=== PATIENT | male | born 1970 | race Caucasian/White ===

== ENCOUNTER 2018-01-06 12:10 | Emergency (ER) | payer BC, SELFPAY ==
[2018-01-06 12:10] VITALS: BP 112/89; PULSE 87; RESP 18; TEMP 36.6; O2SAT 98; BMI 27.4
--- NOTE | 2018-01-06 13:22 | ED.VISSUMM ---
- ER Visit Summary Date of Service: 01/06/18 Chief Complaint: [] Left inguinal pain for years History of Present Illness: The patient is a 47 M [] has had left inguinal pain for years he has had an extensive prior evaluation for the etiology of this pain is unclear he does have a history of a right hernia inguinal surgery involving mesh done about 20 years ago at a [facility]. Indicates the etiology of the left inguinal pain is unclear he has been seen by multiple physicians for he is currently under pain management for back pain and this pain as well, he indicates he had a lumbar spine injection by his pain management physician recently that usually controls the pain this time it did not, he went to [facility] 1 day ago had extensive workup by his history his reports, including negative workup labs and a CT scan of that area that showed no hernia no tumor no mass nothing life-threatening he was told to follow-up with his physicians, he was given Vicodin to use as needed for the pain, he is currently prescribed tramadol by his pain management physicians with tramadol is not helping but the Vicodin did, he still has some Vicodin tablets left Resents the emergency department because he wants something done for the pain until he can follow-up with his physicians, his bowel bladder habits been normal he has had again no fever no cough no trauma to the area he indicates to me in a direct fashion that this pain is chronic it is not new or different it just did not respond to the lumbar spine injection he had the other day by his [employer] pain management physician Physical Examination: [] Points directly to the left inguinal area suprapubic region, head neck chest unremarkable the abdomen soft nontender the left inguinal region shows some fatty fullness here no obvious hernia is apparent no tumor no mass he just basically complains of pain to the left of the pubis to this area there is no skin lesions no skin palomino no warmth no fluctuance, is a slight fullness that is mild and may be the abnormality seen on CT the other day his testicles are unremarkable he has strong femoral pulses bilaterally he has no adenopathy his back is unremarkable his upper lower extremity unremarkable Test Results: [] Emergency Department Course and Treatment: [] Long conversation with the patient apparently he has gone through an extensive prior diagnostic evaluation for this process he most recently had a CT scan as above, I do not know why this pain did not respond to the epidural spine injection he had recently but this appears to be chronic, I explained to him that given his prior workup there is does not appear to be anything additional that I can do through the emergency department, he does not wish to have any tests done to the emergency department he just wants his pain control at this time of explained to him we cannot further manage his pain from the emergency department he will be given morphine, Toradol IM and he will follow-up his pain management doctors and other physicians for further management Treatment Plan: [] Disposition: [] Home stable Impression: [] Acute recurrent left inguinal groin pain This note was generated with [employer] dictation software. It may contain incorrect words, spelling, and punctuation that were not noted in review of the chart prior to signing ED Disposition - Plan for ED Patient: Chief Complaint: Other, Pain/Inj Referrals: Josias Mcwilliams DO [Primary Care Provider] -
--- NOTE | 2018-01-06 13:27 | ED.DCSUM_ITS ---
- ER Visit Summary Date of Service: 01/06/18 Chief Complaint: [] Left inguinal pain for years History of Present Illness: The patient is a 47 M [] has had left inguinal pain for years he has had an extensive prior evaluation for the etiology of this pain is unclear he does have a history of a right hernia inguinal surgery involving mesh done about 20 years ago at a [facility]. Indicates the etiology of the left inguinal pain is unclear he has been seen by multiple physicians for he is currently under pain management for back pain and this pain as well, he indicates he had a lumbar spine injection by his pain management physician recently that usually controls the pain this time it did not, he went to [facility] 1 day ago had extensive workup by his history his reports, including negative workup labs and a CT scan of that area that showed no hernia no tumor no mass nothing life-threatening he was told to follow -up with his physicians, he was given Vicodin to use as needed for the pain, he is currently prescribed tramadol by his pain management physicians with tramadol is not helping but the Vicodin did, he still has some Vicodin tablets left Resents the emergency department because he wants something done for the pain until he can follow-up with his physicians, his bowel bladder habits been normal he has had again no fever no cough no trauma to the area he indicates to me in a direct fashion that this pain is chronic it is not new or different it just did not respond to the lumbar spine injection he had the other day by his [employer] pain management physician Physical Examination: [] Points directly to the left inguinal area suprapubic region, head neck chest unremarkable the abdomen soft nontender the left inguinal region shows some fatty fullness here no obvious hernia is apparent no tumor no mass he just basically complains of pain to the left of the pubis to this area there is no skin lesions no skin palomino no warmth no fluctuance, is a slight fullness that is mild and may be the abnormality seen on CT the other day his testicles are unremarkable he has strong femoral pulses bilaterally he has no adenopathy his back is unremarkable his upper lower extremity unremarkable Test Results: [] Emergency Department Course and Treatment: [] Long conversation with the patient apparently he has gone through an extensive prior diagnostic evaluation for this process he most recently had a CT scan as above, I do not know why this pain did not respond to the epidural spine injection he had recently but this appears to be chronic, I explained to him that given his prior workup there is does not appear to be anything additional that I can do through the emergency department, he does not wish to have any tests done to the emergency department he just wants his pain control at this time of explained to him we cannot further manage his pain from the emergency department he will be given morphine, Toradol IM and he will follow-up his pain management doctors and other physicians for further management Treatment Plan: [] Disposition: [] Home stable Impression: [] Acute recurrent left inguinal groin pain This note was generated with [employer] dictation software. It may contain incorrect words, spelling, and punctuation that were not noted in review of the chart prior to signing ED Disposition - Plan for ED Patient: Chief Complaint: Other, Pain/Inj Referrals: Josias Mcwilliams DO [Primary Care Provider] -
--- NOTE | 2018-01-06 13:27 | ED.DEP ---
ED Disposition - Plan for ED Patient: Chief Complaint: Other, Pain/Inj Instructions: ED Chronic Pain Management Referrals: Josias Mcwilliams DO [Primary Care Provider] -
[2018-01-06] MEDS: Ketorolac 60 MG/2 ML Vial IM (13:38)
[2018-01-06 13:46] VITALS: BP 120/72; PULSE 98; RESP 16; O2SAT 94
== END 2018-01-06 13:46 | disposition home or self-care (01) ==
LOC: ED 12:58
PROVIDERS: Emergency Provider Emergency Medicine; Family Provider Family Medicine; PCP Family Medicine
DX: R10.32 Left lower quadrant pain (principal)
CPT/HCPCS: 96372; 99283

== ENCOUNTER 2018-05-02 10:45 | Emergency (ER) | payer BC, SELFPAY ==
[2018-05-02 10:46] VITALS: BP 117/72; PULSE 92; RESP 18; TEMP 36.6; O2SAT 98; BMI 25.8
--- NOTE | 2018-05-02 11:01 | ED.DCSUM_ITS ---
- ER Visit Summary Date of Service: 05/02/18 Chief Complaint: Left thumb injury History of Present Illness: The patient is a 47 M who is right-hand dominant with up-to-date tetanus presents to the emergency department with left thumb injury. Patient was in his normal state of health. He states that he was loading up his truck bed this morning. He thinks that he got his finger stuck with a corrugated staple. He had immediate pain and bleeding. He states that he put glue on the area and then bandaged it. He states later, he accidentally remove the bandage and he was putting on a shoe. It started to bleed again. He states he went to urgent care, but they told him he needs to come here for evaluation. He is otherwise healthy. Physical Examination: Vital signs reviewed General: Well-nourished, well-developed Head: Normocephalic, atraumatic Eyes: Pupils equal and reactive, extraocular muscles intact Neck, supple, no lymphadenopathy Heart: Regular rate and rhythm Respiratory: No distress, clear bilaterally Abdomen: Soft, nontender, nondistended, no peritoneal signs Back: Nontender Extremities: Patient has a 3 cm full-thickness laceration through the lateral aspect of the left first nail. There is active bleeding. Two-point determination is preserved. Flexion and extension are preserved. Skin: Normal color no rash Neuro: Alert and oriented, no focal or lateralizing deficits Test Results: [] Emergency Department Course and Treatment: The patient's tetanus is already up- to-date. I did obtain plain films. There is no evidence of bony involvement. He underwent digital block under sterile technique. The wound was aggressively irrigated with 250 cc of normal saline. I did remove the partial aspect of the lateral nail which had avulsed. The nailbed was closed with 1 5-0 Polysorb suture. The rest of the laceration involving the pad of the finger was closed with 5 5-0 simple interrupted suture. The patient tolerated this without issue. Dressing was placed. He was counseled on wound care. He will follow- up in 10 days for suture removal. He is comfortable with this plan of care. Treatment Plan: [] Disposition: Discharge Impression: 2 cm left first finger laceration with nailbed involvement with repair This note was generated with [employer] software. It may contain incorrect words, spelling, and punctuation that were not noted in review of the chart prior to signing ED Disposition - Plan for ED Patient: Chief Complaint: Laceration Instructions: ED Laceration Hand Referrals: Josias Mcwilliams DO [Primary Care Provider] - 10 Day for suture removal
[2018-05-02] MEDS: Bupivacaine Mpf 0.5% 30 ML VIAL INFILT (12:41)
[2018-05-02 12:42] VITALS: BP 117/74; PULSE 64; RESP 14; O2SAT 98
== END 2018-05-02 12:57 | disposition home or self-care (01) ==
LOC: ED 11:01
PROVIDERS: Emergency Provider Emergency Medicine; Family Provider Family Medicine; PCP Family Medicine
DX: S61.112A Laceration without foreign body of left thumb with damage to nail, initial encounter (principal); W22.8XXA Striking against or struck by other objects, initial encounter; Y93.89 Activity, other specified; Y92.9 Unspecified place or not applicable
CPT/HCPCS: 11730; 12002; 73130; 99283

== ENCOUNTER → 2020-05-13 15:06 | Outpatient (CLI) | payer BC, SELFPAY ==
--- NOTE | 2020-05-13 15:09 | RAD_ITS ---
STUDY: X-RAY - CERVICAL SPINE REASON FOR EXAM: Male, 50 years old. Headache. Limited range of motion. TECHNIQUE: 3 view(s) of the cervical spine were obtained. COMPARISON: None FINDINGS: Normal anterior atlantoaxial articulation. Normal odontoid process. There is reversal of the normal cervical lordosis. There is multi-level endplate spondylosis. There is multi-level degenerative disc disease with multilevel disc space narrowing. This is most marked at L5 6. There is no evidence of acute fracture or loss of vertebral axial height. There is maintenance of normal alignment. The soft tissue structures are unremarkable. RAD/Cerv Spine 2 or 3 Views IMPRESSION: Reversal of the cervical lordosis with degenerative changes of the lower cervical spine. Electronically Signed: Hilario Ang DO at 16:16 EDT Tel [phone], Service support ,
== END ==
PROVIDERS: PCP Family Medicine; Referring Provider Anesthesiology Pain Medicine; Visit Provider Anesthesiology Pain Medicine
DX: M54.2 Cervicalgia (principal)
CPT/HCPCS: 72040

== ENCOUNTER → 2022-10-10 | Outpatient (CLI) | payer OTHER, SELFPAY ==
--- NOTE | 2022-10-10 15:50 | MRI_ITS ---
PROCEDURE: MRI LUMBAR SPINE WITHOUT CONTRAST REASON FOR EXAM: Male, 52 years old. LBP,GROIN PAIN radiculopathy TECHNIQUE: Standardized fat and water weighted pulse sequences were obtained in the sagittal and axial planes. COMPARISON: None FINDINGS: Normal lumbar lordosis. There is no substantial scoliosis. Normal conus medullaris that terminates at the T12 level. No marrow edema or fracture or compression deformity is seen. T12-L1: Moderate disc space narrowing with minimal annular bulging. Normal bilateral facet joints. Normal central canal and bilateral lateral recesses. Normal bilateral intervertebral neural foramina. L1-2: Moderate disc space narrowing with diffuse disc bulge and mild endplate spurring. Mild central canal stenosis and mild facet joint hypertrophy. Normal bilateral intervertebral neural foramina. L2-3: Diffuse disc desiccation with mild to moderate disc space narrowing and a diffuse disc bulge/spur complex. Mild Modic endplate degenerative signal. Normal bilateral facet joints. Normal central canal and bilateral lateral recesses. Normal bilateral intervertebral neural foramina. L3-4: Moderate to significant disc space narrowing with a diffuse disc bulge/spur complex. Mild Modic endplate degenerative signal. Slight retrolisthesis of L3 on L4 of 2 mm. Mild central canal stenosis and bilateral lateral recess stenosis with mild impingement on the descending nerve roots. Moderate facet joint hypertrophy results in moderate bilateral foraminal stenosis with nerve root compression, left greater than right. L4-5: Diffuse disc desiccation with moderate to significant disc space narrowing and mild diffuse disc bulging. Mild to moderate Modic endplate degenerative signal and endplate spurring. Mild facet joint hypertrophy. Mild bilateral foraminal stenosis with posterior nerve root impingement seen on the left. Normal central canal and bilateral lateral recesses. L5-S1: Normal endplates. Mild posterior disc space narrowing without bulging or herniation of the disc. Mild facet joint hypertrophy. Normal central canal and bilateral lateral recesses. Normal bilateral intervertebral neural foramina. Normal visualized sacral ala. Normal visualized paraspinous soft tissue structures. MRI/Spine Lumbar (Routine) IMPRESSION: 1. Multilevel degenerative changes, as described above. 2. Multilevel foraminal stenosis with nerve root compression 3. Mild central canal stenosis at L1-L2 and L3-L4 Electronically Signed: Braxton Cordova MD at 14:14 EST ,
== END | disposition home or self-care (01) ==
PROVIDERS: PCP Family Medicine; Referring Provider Anesthesiology Pain Medicine; Visit Provider Anesthesiology Pain Medicine
DX: M54.17 Radiculopathy, lumbosacral region (principal)
CPT/HCPCS: 72148

== ENCOUNTER 2024-08-18 11:29 | Emergency (ER) | payer OTHER, SELFPAY ==
[2024-08-18 11:30] VITALS: BP 123/80; PULSE 68; RESP 14; TEMP 36.6; O2SAT 98; BMI 24.4
--- NOTE | 2024-08-18 11:50 | CT_ITS ---
EXAM: CT HEAD WITHOUT INTRAVENOUS CONTRAST CLINICAL INDICATION: ALOC TECHNIQUE: Multiple axial images were obtained of the head without intravenous contrast. This CT exam was performed using one or more of the following dose reduction techniques: automated exposure control, adjustment of the mA and/or kV according to patient size, and/or use of iterative reconstruction technique. RADIATION DOSE: CTDIvol = 44.99 mGy, DLP = 812.98 mGy-cm COMPARISON: No relevant prior studies available. FINDINGS: BRAIN AND EXTRA-AXIAL SPACES: Unremarkable. No intra- or extra-axial hemorrhage. No evidence of acute infarct. No intracranial mass or mass effect. There is preservation of the boogie/white matter interface. Posterior fossa structures are unremarkable. Ventricles are appropriate for age. No hydrocephalus. Basal cisterns are patent. BONES/JOINTS: Unremarkable. No discrete lytic or blastic abnormalities. SINUSES: Unremarkable as visualized. Clear. MASTOID AIR CELLS: Unremarkable. Clear. ORBITS: Visualized globes, extraocular muscles, optic nerves and retrobulbar fat appear unremarkable. CT/Brain/Head without Contrast IMPRESSION: Negative head/brain CT without intravenous contrast. Electronically Signed: Spenser Redman MD at 13:14 EST ,
--- NOTE | 2024-08-18 11:51 | EX.ED.DYSGE1 ---
HPI History of Present Illness Chief Complaint: Fatigue Informant: patient Onset/Context/Timing Onset: Today Context: Gradual Onset Timing: Continuous Current Severity: Mild Maximum Severity: Mild Narrative Narrative: 54-year-old male history of anxiety. Says his work today is feeling very fatigued. Reportedly had an altered level of consciousness. I do not headache earlier today. Denies any recent illness. No vomiting or diarrhea. No fever. No chest pain or shortness of breath. Prior similar symptoms: No Recent Illness/Hospitalization: No PFSH PFSH Medical History Back pain Home Medications ?Medication ?Instructions ?Recorded ?Last Taken ?Type armodafinil 150 mg tablet (Nuvigil) 150 mg PO DAILY 01/06/18 Unknown History citalopram 20 mg tablet 20 mg PO DAILY 01/06/18 Unknown History clonazepam 1 mg tablet 1 mg PO BID 01/06/18 Unknown History tramadol 50 mg tablet 50 mg PO Q4H PRN PRN Pain 01/06/18 Unknown History Allergy/AdvReac Type Severity Reaction Status Date / Time No Known Allergies Allergy Verified 08/18/24 11:31 Social History Smoking Status: Unknown if ever smoked ROS ROS ED ROS Narrative Fatigue. Denies recent illness. No fever. Constitutional Constitutional ED: Denies chills or fever(s) Eyes Eyes: Denies blurry vision ENT ENT ED: Denies ear pain Cardiovascular Cardiovascular: Denies chest pain Respiratory/Chest Respiratory/Chest: Denies cough Gastrointestinal Gastrointestinal: Denies abdominal pain, constipation, diarrhea, melena, nausea or vomiting Genitourinary Genitourinary ED: Denies dysuria or hematuria Musculoskeletal Musculoskeletal: Denies arthralgias Integumentary Denies abscess Neurologic Neurologic: Reports headache(s) Psychiatric Psychiatric: Reports anxiety Endocrine Endocrinology: Denies cold intolerance Hematologic/Lymphatic Hematologic/Lymphatic: Reports none Allergic/Immunologic Allergic/Immunologic ED: Denies mouth swelling, tongue swelling or urticaria EXAM Physical Exam Narrative Exam Narrative: Well-appearing 54-year-old male vital signs are stable afebrile. He seems anxious. No acute distress. Pulse ox 98% on room air no hypoxia. H EENT exam unremarked. Neck nontender. No lymphadenopathy. Lungs did auscultation bilaterally. Heart regular rate and rhythm rate about 70 no murmur. Chest wall and ribs nontender. Abdomen soft nontender. Moving all 4 extremities. Calves are nontender without edema or cords. Normal forensic science examiner strength. Normal dorsi plantarflexion. Neurologically is awake and alert no focal motor deficits. Const Vital Signs: 08/18/24 11:30 08/18/24 11:36 08/18/24 13:20 Temperature 98 F Temperature Source Oral Pulse Rate 68 68 Respiratory Rate 14 16 Respiratory Pattern Normal Blood Pressure 123/80 H 107/71 Blood Pressure Mean 94 83 Pulse Ox 98 97 Oxygen Delivery Method Room Air Room Air 08/18/24 15:00 Temperature Temperature Source Pulse Rate 62 Respiratory Rate 14 Respiratory Pattern Blood Pressure 119/74 Blood Pressure Mean 89 Pulse Ox 98 Oxygen Delivery Method Room Air Positive well nourished and well developed; Negative for obese, cachectic, contractures or unkempt General Appearance ED: well developed and NAD; Negative for unkempt, cachectic, contractures, cyanotic, diaphoretic or pallor Nutritional Appearance: Negative for cachectic or obese HEENT Reports moist mucous membranes Negative for trauma or tenderness Eyes PERRL and EOMs intact bilaterally General Eye ED: Negative for pale conjunctiva or scleral icterus Neck no lymphadenopathy, supple and no JVD General: Negative for tenderness Chest Wall inspection of chest normal and palpation of chest normal Resp normal respiratory effort and clear to auscultation bilaterally Effort and Inspection: Negative for retractions Auscultation: Negative for rales, rhonchi, wheezes or diminished lung sounds Cardio regular rate, regular rhythm, S1 normal heart sound, S2 normal heart sound and no murmurs GI normal to inspection, nondistended, normoactive bowel sounds, non-tender, non-distended and no masses Palpation: soft; Negative for tender, guarding or rebound tenderness present Back/Spine no CVA tenderness General Back: Negative for CVA tenderness Cervical Spine: Negative for cervical spine tenderness Thoracic Spine / Upper Back: Negative for thoracic spinal tenderness or paraspinal muscle tenderness Lumbar Spine / Lower Back: Negative for lumbar spinal tenderness Extremity normal to inspection General Extremety ED: Negative for edema or tenderness General Extremity: Negative for edema Neuro oriented x3 and CN's II-XII intact bilaterally Sensorium / Orientation: alert; Negative for lethargic or stuporous Motor Exam: strength 5/5 throughout Psych Negative for mental status grossly normal Psych Narrative: Anxious. Appearance: Negative for unkempt Attitude: No agitated Mood & Affect: anxious; Negative for depressed or tearful Skin no rashes or lesions noted, no wounds and skin turgor normal General Skin Exam: elasticity normal; Negative for jaundice or pallor Lesions: No lesion noted Rashes: No rashes noted Trauma: Negative for abrasion Wounds: Negative for wounds noted MDM MDM MDM Narrative Medical decision making narrative: 54-year-old male anxious complaining of fatigue and altered mental status. His exam is normal other than he is anxious. CAT scan labs to be obtained. He will be given a milligram of Ativan to help with his anxiety. Repeat exam patient is doing well at 3:18 PM. Anxiety is improved. We went over his test results. He is comfortable being discharged to home. I think his symptoms are mainly from anxiety and not from another medical issue. History & Record Review Discussion w/independent historian: Patient Lab Data Attestation: I reviewed the patient's lab results. Lab results narrative: CBC shows a white count of 7. H&H 13.4 and 39. Platelets 286. Electrolytes show sodium 140. Gap 4. Normal BUN 18 and creatinine 0.8. Glucose 97. Labs: Laboratory Results - last 24 hr 08/18/24 11:55 WBC 7.7 RBC 4.19 L Hgb 13.4 Hct 39.6 L MCV 94.5 H MCH 32.0 MCHC 33.8 RDW Std Deviation 44.9 H RDW Coeff of Lucio 13.0 Plt Count 286 MPV 7.7 Immature Gran % (Auto) 2.900 H Neut % (Auto) 78.3 H Lymph % (Auto) 11.9 L Kingsbury % (Auto) 6.0 Eos % (Auto) 0.4 Baso % (Auto) 0.5 Absolute Neuts (auto) 6.0 Absolute Lymphs (auto) 0.91 Nucleated RBC % 0 Sodium 140 Potassium 4.0 Chloride 110 H Carbon Dioxide 27.0 Anion Gap 4 L BUN 18 Creatinine 0.85 Estim Creat Clear Calc 101.66 Est GFR (MDRD) Af Amer 122 Est GFR (MDRD) Non-Af 101 BUN/Creatinine Ratio 21.3 H Glucose 97 Calcium 9.1 Radiography Diagnostic Testing: Clinical Impression(s) from Imaging Studies Brain CT 08/18/24 11:50 IMPRESSION: Negative head/brain CT without intravenous contrast. Electronically Signed: Spenser Redman MD at 13:14 EST , Discharge Plan Triage Chief Complaint: Fatigue ED Provider: Konrad Page Dx/Rx/DC Orders Clinical Impression: Anxiety Instructions: ED Anxiety Reaction Prescriptions: No Action clonazepam 1 MG tablet 1 mg PO BID tramadol 50 MG tablet 50 mg PO Q4H PRN PRN (Reason: Pain) citalopram 20 MG tablet 20 mg PO DAILY armodafinil [Nuvigil] 150 MG tablet 150 mg PO DAILY Primary Care Provider: Josias Mcwilliams Referrals: Josias Mcwilliams DO [Primary Care Provider] - 1 Week Activity Restrictions/Additional Instructions: Call and follow-up with your primary care physician to discuss with him further treatment for your anxiety. Other things to consider also would be counseling, exercise, meditation or reading up on anxiety a lot of times people get significant improvement with those things. Your labs today were unremarkable. Print Language: Burkinan Disposition Disposition: Home, Self Care
[2024-08-18] MEDS: LORazepam 1 MG Tablet PO (12:01)
[2024-08-18 12:09] LABS: Absolute Lymphocyte Count 0.91 X10^3/uL (0.83-4.51); Basophil# 0.04 X10^3/uL; Basophil% 0.5 % (0-1); Eosinophil# 0.03 X10^3/uL; Eosinophils% 0.4 % (0-5); Hematocrit 39.6 % (40-54); Hemoglobin 13.4 g/dL (13.0-16.5); Lymphocyte # 0.91 X10^3/ul (0.83-4.51); Lymphocyte % 11.9 % (19-41); Mean Corp Hgb Conc 33.8 g/dL (32-36); Mean Corpuscular Volume 94.5 fL (80-94); Mean Platelet Vol. 7.7 fl (6.2-12.0); Monocyte# 0.46 X10^3/uL; NRBC Flagged by Analyzer 0 % (0-5); Neutrophil # 6.01 X10^3/uL (2.7-7.7); Neutrophil % 78.3 % (47-70); Platelet Count 286 K/mm3 (150-450); RBC Distribution Width SD 44.9 fl (35.1-43.9); Red Blood Count 4.19 M/mm3 (4.6-6.2); White Blood Count 7.7 K/mm3 (4.4-11.0)
[2024-08-18 12:25] LABS: Anion Gap 4 (5-15); BUN 18 mg/dL (7-18); BUN/Creat Ratio 21.3 RATIO (10-20); Calcium,Total 9.1 mg/dL (8.5-10.1); Chloride 110 mmol/L (98-107); Creatinine, Serum 0.85 mg/dL (0.70-1.30); EST Glomerular Filtration Rate 101 mL/min (>60); Est Glom Filt Rate - Afr Amer 122 mL/min (>60); Estimated Creatinine Clearance 101.66 ml/min; Glucose 97 mg/dL (74-106); Sodium Level 140 mmol/L (136-145)
[2024-08-18 13:20] VITALS: BP 107/71; PULSE 68; RESP 16; O2SAT 97
[2024-08-18 15:00] VITALS: BP 119/74; PULSE 62; RESP 14; O2SAT 98
[2024-08-18 15:26] VITALS: BP 119/71; PULSE 62; RESP 16; TEMP 36.6; O2SAT 99
== END 2024-08-18 15:27 | disposition home or self-care (01) ==
PROVIDERS: Emergency Provider Emergency Medicine; PCP Family Medicine; Visit Provider Emergency Medicine
DX: F41.9 Anxiety disorder, unspecified (principal)
CPT/HCPCS: 36415; 70450; 80048; 85025; 99285; A4216